=== PATIENT | male | born 1960 ===

== ENCOUNTER → 2018-01-08 | Day surgery (SDC) | payer OTHER ==
[~2018-01-08] MED LIST: BACITRACIN 15 GM TUBE TOPICAL OINTMENT TP ONE; BUPIVACAINE 0.75% IN DEXTROSE/PF 2ML AMPULE NR ONE; LACTATED RINGERS SOLUTION 1,000 ML IV SCH; LIDOCAINE HCL/PF 2% SDV 5ML VIAL ONE; MEPERIDINE HCL CARPU-JECT 25 MG/1 ML DISP.SYRIN IVPUSH ONE; MEPERIDINE HCL CARPU-JECT 25 MG/1 ML DISP.SYRIN ONE; MIDAZOLAM HCL 2 MG/2 ML SINGLE DOSE VIAL ONE; ONDANSETRON 4 MG/2 ML VIAL IVPUSH PRN; ONDANSETRON 4 MG/2 ML VIAL ONE; PROPOFOL 20 ML ONE; ceFAZolin SODIUM 1 GM VIAL IVPB ONE
[2018-01-08 07:23] VITALS: BMI 24.0
--- NOTE | 2018-01-08 07:59 | HP ---
History & Physical Update - History History: No Change - Physical Physical: No Change - Assessment Assessment: No Change - Plan Plan: No Change
--- NOTE | 2018-01-08 08:01 | OP ---
Operative Note - Note: Operative Date: 01/08/18 Pre-Operative Diagnosis: prostate ca Operation: prostate cryoablation and cystoscopy Findings: heterogen prostate Post-Operative Diagnosis: Same as Pre-op Surgeon: David Cutler Anesthesiologist/SANDWICH MAKER: Dominguez Schmidt Anesthesia: Spinal Estimated Blood Loss (mls): 0 Drains & Tubes with Location: 18 fr magallanes Operative Report Dictated: Yes
--- NOTE | 2018-01-08 13:43 | OP ---
DATE OF OPERATION: 01/08/2018 PREOPERATIVE DIAGNOSIS: Prostate cancer. POSTOPERATIVE DIAGNOSIS: Prostate cancer. PRODEDURE: Prostate cryoablation and cystoscopy. SURGEON: David Cortez MD RECORDING STUDIO SET UP WORKER: None. ANESTHESIA: Spinal. ANESTHESIOLOGIST: Dominguez Schmidt MD SPECIMENS: None. CULTURES: None. DRAINS: An 18-[place] Esparza catheter. ESTIMATED BLOOD LOSS: Negligible. COMPLICATIONS: None. PROCEDURE WAS FOLLOWS: Patient was brought into the operating room, placed on the operating table in the supine position. After administration of spinal anesthesia, sequential compression devices were placed and intravenous antibiotics were administered. Patient was placed in the dorsal lithotomy position. Perineum was shaved first, then, peritoneum, genitals, thighs, lower abdomen, buttock were prepped and draped in the usual sterile manner. An 18-[place] Esparza catheter was placed per urethra, 10 mL placed in the balloon, and the bladder was filled with 300 mL of sterile normal saline and clamped. Now, an [place] drape was placed elevating the scrotum. Then, the transrectal ultrasound probe was inserted into rectum, and transrectal ultrasound was done of the prostate. A plan was devised for prostate cryoablation using 6 probes. Now, the 6 cryo probes were placed under ultrasound guidance in the appropriate locations. Two temperature sensors were placed, one in the [place]villiers fascia, one in the external sphincter. Now, under longitudinal view, the depth of the probes was checked and measurements were taken, and the cryo probes were set to the appropriate length. Now, the Esparza catheter was removed. Flexible cystoscopy was performed that demonstrated normal anterior urethra, normal prostatic urethra, no probes that penetrated the urethra. The bladder was entered, thoroughly inspected. There were no foreign bodies, tumors, stones, inflammation. Both ureteral orifices were in their usual location with a clear efflux bilaterally. The scope was retroflexed, and no probes were seen entering the bladder. Now, Super Stiff Guidewire was passed through the cystoscope and the cystoscope removed. The urethral warmer was passed over the Super Stiff Guidewire into the bladder, and the guidewire was removed. Urethral warming was started now. Now, prostate cryoablation was done with two freeze-thaw cycles. At the end of the procedure, all prostate cryoablation probes and temperature sensors were removed. Urethral warmer was left in place for 5 minutes and then removed. A No.18 [place] Esparza catheter was replaced. A sterile compressive device was placed on the perineum, 4x4, and Tegaderm. He tolerated the procedure well, was awoken from anesthesia in the operating room, transferred to the recovery room in stable condition. DAVID CORTEZ M.D. [id number]
[2018-01-08 16:28] VITALS: BP 120/74; PULSE 74; TEMP 98.6
== END | disposition home or self-care (01) ==
LOC: JASU-SURG 06:33
PROVIDERS: ATTEND Urology
PROC: 0V503ZZ Destruction of Prostate, Percutaneous Approach (ICD-10-PCS; principal; 2018-01-08 09:30)
DX: C61 Malignant neoplasm of prostate (principal)
CPT/HCPCS: 55873; C2618; 94760